=== PATIENT | male | born 1955 | race Caucasian/White ===

== ENCOUNTER 2019-02-15 06:08 | Day surgery (SDC) | payer BC, SELFPAY ==
[2019-02-15 06:38] VITALS: BP 136/80; PULSE 63; RESP 18; TEMP 36.6; O2SAT 97
[2019-02-15] MEDS: Lactated Ringers 1,000 ML 80 ML IV (06:51)
--- NOTE | 2019-02-15 06:53 | W.COLOREPORT ---
Date of service: 02/15/19 Time of Service: 07:25 Colonoscopy Report Date of procedure: 02/15/19 Pre-op diagnosis general: Colon Cancer screening Post-op diagnosis procedure note: other (Colon polyps and right sided diverticulosis) Procedure: Colonoscopy with polypectomy by cold forceps Surgeon: Gayatri Hansen Anesthesia proc note operative: other (General/ ASA 2/Humera Castellanos, JOSE ) Estimated blood loss (mL): 3 Pathology: other (cecal polyp and sigmoid polyp) Complications: None Disposition: same day Indications: Mr. Costa is a pleasant 63 year old male seen in the office for a screening colonoscopy. His last colonoscopy was in 2007 and was normal. Risks, benefits and complications have been reviewed. Complications include but are not limited to bleeding, pain, perforation, missed small lesion/polyp, sore throat, aspiration and adverse reaction to the medications. Questions were entertained and answered to their satisfaction and they wished to proceed. No guarantees were given or implied. Prep: Miralax/Dulcolax Procedure Start Time: :25 Procedure End Time: 07:56 Retraction Time: 19 minutes Findings: small sessile polyp in the cecum Pedunculated polyp in the sigmoid colon Procedure Description: After informed consent was obtained the patient was taken to the procedure room and placed in a left decubitous position. Monitors were applied and a time out was done. The patients name, date of , procedure, allergies to medications and metal in their body was reviewed. The patient was then sedated. Once sedated and comfortable a rectal exam was done. External exam was normal. Internal exam revealed a normal sphincter tone and no palpable masses. The prostate smooth. The scope was then introduced and retro-flexed. No internal hemorrhoids were identified. The scope was then advanced to the cecum with difficulty. The patients position was changed to supine and then the scope was able to get advanced into the cecum. The TI and appendiceal orifice were identified. The prep was adequate. The scope was then slowly retracted over 19 minutes back into the rectum. Polyps were removed in the cecum and in the sigmoid colon with cold forceps. There were a handful of diverticula in the right colon. The scope was removed and the patient was woken up and taken back to Same day surgery in stable condition. The patient tolerated the procedure well and there were no immediate complications. Follow up: The patient should follow up in 3-5 years unless they develop changes in bowel habits or other new gastrointestinal complaints.
--- NOTE | 2019-02-15 06:57 | W.PM.DSUDISC ---
Discharge Plan Disposition Patient Disposition: HOME Condition: Good Discharge Details Reason For Visit: Colon Cancer Screening Attending Provider: Gayatri Hansen Primary Care Provider: Nakul Crooks Home Meds and New Rx's Prescriptions: Continued aspirin 81 MG tablet,chewable 81 mg PO DAILY RF: 0 vitamin B complex [B Complex-Vitamin B12] 1 EACH tablet 1 ea PO DAILY RF: 0 sertraline 50 MG tablet 1 tab PO DAILY Qty: 60 RF: 5 metoprolol succinate 50 mg tablet extended release 24 hr 50 mg PO DAILY Qty: 90 RF: 3 lisinopril 10 mg tablet 10 mg PO DAILY Qty: 90 RF: 3 pravastatin 20 mg tablet 20 mg PO DAILY Qty: 90 RF: 4 multivitamin Capsule 1 cap PO DAILY RF: 0 Discontinued polyethylene glycol 3350 17 gram/dose powder 238 g PO ONCE Qty: 238 RF: 0 bisacodyl [Dulcolax (bisacodyl)] 5 mg tablet,delayed release (DR/EC) 5 mg PO ONCE Qty: 4 RF: 0 Discharge Instructions Instructions: Colonoscopy (DC), Colorectal Polyps (DC), Diverticulosis (DC) Additional Instructions: Findings: 2 polyps mild diverticulosis Follow up: 3-5 years Please call if you develop: fevers >101.5 Nausea or Vomiting Abdominal pain that is not transient DAY SURGERY UNIT POST COLONOSCOPY INSTRUCTIONS 1. Because there will be medication in your system for the next 24 hours, you may feel a little sleepy. Your coordination will be affected. Therefore: a. Do not drive or operate dangerous equipment for 24 hours. b. Do not drink alcohol beverages for 24 hours (not even beer). c. Plan to go home and rest for the day. 2. Generally there are no restrictions on your activity after a day or so has gone by, but you may feel a bit fatigued for a few days. 3 After you arrive home you may have a light meal and return to a normal diet as you can tolerate it without feeling sick to your stomach. 4. After surgery, you may feel pain or discomfort. This should be only transient, but if it persists please contact your doctor. 5. If there are any questions regarding the findings of your procedure, please feel free to contact your doctor. 6. If you are unable to contact your doctor with a problem, contact the hospital at [phone]. 7. Continue all your regular medications unless directed otherwise. I understand the above instructions and have no questions. Signature of Patient or Responsible Adult Escort Date/Time Name of Responsible Adult Escort Signature of Nurse Date/Time Activity:: Activity as Tolerated Diet:: high fiber diet Discharge Orders Discharge Orders: Discharge Order (Routine); Ordered 02/15/19 Ordered By: Gayatri Hansen DS: Diagnosis Discharge Diagnosis (1) S/P colonoscopy: Status: Acute (2) Colorectal polyp detected on colonoscopy: Status: Acute (3) Diverticulosis: Status: Acute
--- NOTE | 2019-02-15 07:40 | BOWEL_PTH ---
PATIENT: Aditya Costa LOC: [facility] U#:[id number] AGE/SX: 63/M ROOM: RE02/15/[address]: Gayatri Hansen MD : [id number] BED: DIS: 02/15/2019 SPEC #: [id number] RECD: 02/15/19 12:44 STATUS: [place]ORE REQ #: [id number] ROB: 02/15/19 07:[address]: Gayatri Hansen DEPT: Surgical Specimen RECD BY: Gricelda Rahman ENTERED: 02/15/19 12:45 SP TYPE: Bowel OTHR DR: Nakul Crooks DO Tissues: 1 - BIOPSY BOWEL 2 - BIOPSY BOWEL Procedures: GROSS AND MICRO LEVEL 4 Comments: [id number]
[2019-02-15 08:35] VITALS: BP 120/84; PULSE 56; RESP 16; TEMP 36.2; O2SAT 99
== END 2019-02-15 09:15 | disposition home or self-care (01) ==
PROVIDERS: PCP Emergency Medicine; Visit Provider Surgery
PROC: 0DJD8ZZ Inspection of Lower Intestinal Tract, Via Natural or Artificial Opening Endoscopic (ICD-10-PCS; CPT 45378; principal; 2019-02-15 07:30)
DX: Z12.11 Encounter for screening for malignant neoplasm of colon (principal); D12.0 Benign neoplasm of cecum; K63.5 Polyp of colon; I10 Essential (primary) hypertension; E78.5 Hyperlipidemia, unspecified
CPT/HCPCS: 45380; 88305

== ENCOUNTER 2019-11-22 07:00 | Outpatient (CLI) | payer BC, SELFPAY ==
[2019-11-22 11:05] LABS: Anion Gap 9.2 mmol/L (3-11); BUN 18 mg/dL (7-18); CO2 30.8 mmol/L (21.0-32.0); CREATININE 0.97 mg/dL (0.70-1.30); Calcium 9.3 mg/dL (8.5-10.1); Chloride 102 mmol/L (98-107); Glucose 113 mg/dL (74-106); Potassium 4.4 mmol/L (3.5-5.1); Sodium 142 mmol/L (136-145)
== END 2019-11-22 07:20 ==
PROVIDERS: PCP Emergency Medicine; Visit Provider Emergency Medicine
DX: I10 Essential (primary) hypertension (principal)
CPT/HCPCS: 36415; 80048

== ENCOUNTER 2021-01-23 12:10 | Outpatient (REF) | payer BC, SELFPAY ==
[2021-01-23 22:39] LABS: BUN 28 mg/dL (7-18); Calcium 9.6 mg/dL (8.5-10.1); Chloride 103 mmol/L (98-107); Cholesterol 197 mg/dL (<200); Glucose 108 mg/dL (74-106); HDL Cholesterol 46 mg/dL (40-60); Potassium 4.4 mmol/L (3.5-5.1); Sodium 141 mmol/L (136-145); Triglyceride 403 mg/dL (<150)
[2021-01-23 22:59] LABS: LDL CHOLESTEROL 103 mg/dL (<100)
== END 2021-01-23 12:11 | disposition home or self-care (01) ==
LOC: LBN 12:10
PROVIDERS: PCP Emergency Medicine; Visit Provider Emergency Medicine
DX: E11.9 Type 2 diabetes mellitus without complications (principal); E78.5 Hyperlipidemia, unspecified; I10 Essential (primary) hypertension
CPT/HCPCS: 80048; 80061; 83721; 83036

== ENCOUNTER 2021-01-23 17:54 | Outpatient (CLI) | payer BC, SELFPAY ==
--- NOTE | 2021-01-23 12:30 | DI.RAD_ITS ---
EXAM: XR SHOULDER RT COMPLETE 2+V CLINICAL HISTORY: Rt shoulder pain, injury, M25.511. TECHNIQUE: 2D digital imaging was performed. COMPARISON: No exams were available for comparison FINDINGS: BONES: No acute fracture is present. No bony destructive lesion is seen. Prior distal clavicular res ection. Subchondral cysts near the greater tuberosity. JOINTS: No dislocation present. Glenohumeral joint space well maintained. Mild spurring at the gleno id. SOFT TISSUE: Normal. IMPRESSION: Distal clavicular resection. Mild glenohumeral joint degenerative changes. DATA REPOSITORY: RADIATION DOSE DELIVERED:
== END 2021-01-23 18:14 ==
PROVIDERS: PCP Emergency Medicine; Visit Provider Emergency Medicine
DX: M25.511 Pain in right shoulder (principal); M25.811 Other specified joint disorders, right shoulder
CPT/HCPCS: 73030

== ENCOUNTER 2021-04-08 09:16 | Outpatient (CLI) | payer BC, SELFPAY ==
--- NOTE | 2021-04-08 08:30 | DI.RAD_ITS ---
Exam(s) XR SHOULDER LT COMPLETE 2+V EXAM: XR SHOULDER LT COMPLETE 2+V CLINICAL HISTORY: L shoulder pain. TECHNIQUE: 2D digital imaging was performed. COMPARISON: CR XR SHOULDER RT COMPLETE 2+V from 01/23/2021 FINDINGS: No evidence of acute fracture or dislocation. However, there is a 7 x 3 millimeter calcification the soft tissues adjacent to the greater tuberosity consistent with calcific tendinitis. Subacromial sp ulises is not diminished. AC joint appears unremarkable. IMPRESSION: Calcific rotator cuff tendinitis. DATA REPOSITORY: RADIATION DOSE DELIVERED:
== END 2021-04-08 09:17 | disposition home or self-care (01) ==
LOC: DIORS 09:16
PROVIDERS: PCP Emergency Medicine; Referring Provider Emergency Medicine; Visit Provider Physician Assistant
DX: M25.512 Pain in left shoulder (principal); M75.32 Calcific tendinitis of left shoulder
CPT/HCPCS: 73030

== ENCOUNTER 2021-07-02 01:10 | Outpatient (CLI) | payer BC, SELFPAY | END 2021-07-02 01:11 | disposition home or self-care (01) | LOC: LOS 01:10 | PROVIDERS: PCP Emergency Medicine; Visit Provider Emergency Medicine | DX: E11.9 Type 2 diabetes mellitus without complications (principal) | CPT/HCPCS: 36415; 83036 ==

== ENCOUNTER 2021-08-23 02:27 | Outpatient (CLI) | payer BC, SELFPAY ==
--- NOTE | 2021-08-23 06:30 | DI.MRI_ITS ---
Exam(s) MR UPPER JOINT LT WO EXAM: MR UPPER JOINT LT WO CLINICAL HISTORY: calcific tendinitis of shoulder, shoulder pain. TECHNIQUE: Multiplanar multisequence MRI was performed. COMPARISON: plain films 08 April 2021 FINDINGS: Bones: There is no fracture or contusion pattern. The AC joint shows mild spurring. Rotator Cuff: There is a full-thickness tear of the supraspinatus tendon with retraction of nearly 1 cm. There is mild muscle atrophy, Goutallier grade 2. The infraspinatus tendon shows calcifications distally but no evidence of tear or surrounding thickening. There is some high signal within the distal subscapul nola tendon a question of a partial tear. The teres minor is normal. Labrum and biceps anchor: The biceps tendon is located. The anchor is well maintained. There is fluid in the biceps tendon she ath. The labrum is within normal limits. There is a small joint effusion as well as fluid in the fajardo bcoracoid region. There is extension of fluid around the subscapularis muscle . there is a small am ount of fluid in the subacromial sub deltoid bursa. Fluid extends anterior to the teres minor muscle . IMPRESSION: Full-thickness tear of the supraspinatus tendon. Question partial tear of the subscapularis tendon. JOint effusion with extension around the subscapularis and teres minor muscles.. DATA REPOSITORY:
== END 2021-08-23 02:47 ==
PROVIDERS: PCP Emergency Medicine; Visit Provider Student in an Organized Health Care Education/Training Program
DX: M25.512 Pain in left shoulder (principal); M25.412 Effusion, left shoulder; M75.102 Unspecified rotator cuff tear or rupture of left shoulder, not specified as traumatic; M75.32 Calcific tendinitis of left shoulder
CPT/HCPCS: 73221

== ENCOUNTER 2021-12-09 02:12 | Outpatient (CLI) | payer BC, SELFPAY ==
[2021-12-09 11:02] LABS: Source Nasal/Nares
[2021-12-09 15:09] LABS: COVID-19 PCR Negative (Negative)
== END 2021-12-09 02:13 | disposition home or self-care (01) ==
LOC: LBO 02:12
PROVIDERS: PCP Nurse Practitioner Family; Visit Provider Student in an Organized Health Care Education/Training Program
DX: Z20.822 Contact with and (suspected) exposure to COVID-19 (principal); Z01.818 Encounter for other preprocedural examination
CPT/HCPCS: 87635

== ENCOUNTER 2021-12-11 07:56 | Day surgery (SDC) | payer BC, SELFPAY ==
[2021-12-11] VITALS (9 sets, daily range): BP systolic 106–138; BP diastolic 54–84; PULSE 54–72; RESP 11–16; TEMP 36.1–37.1; O2SAT 96–99; BMI 35.2
[2021-12-11] MEDS: Lactated Ringers 1,000 ML 80 ML IV (08:35)
--- NOTE | 2021-12-11 08:52 | W.ANESPRE ---
General Info Date of Service Date Performed: 12/11/21 Height: 5 ft 8 in Weight: 105 kg Body Mass Index (BMI): 35.2 Surgical Procedure: Operation Date: 12/11/21 11:10 Proposed Procedure Side Surgeon p Shoulder Rotator Cuff Arthroscopic Left Antwan Valdes MD Meds Allergies and Home Medications Allergies Allergy/AdvReac Type Severity Reaction Status Date / Time atorvastatin calcium AdvReac Mild MYALGIAS Verified 12/11/21 08:15 [From Lipitor] Home Medication Medication Instructions Recorded aspirin 81 mg chewable tablet 81 mg PO DAILY tab-cap 04/30/17 vitamin B complex (B 1 ea PO DAILY 05/05/18 Complex-Vitamin B12) multivitamin 1 cap PO DAILY 02/11/19 metoprolol succinate 50 mg 50 mg PO DAILY #90 tab 10/31/20 tablet,extended release 24 hr lisinopril 10 mg tablet 10 mg PO DAILY #90 tab-cap 11/07/20 sertraline 50 mg tablet 50 mg PO DAILY #90 tab 02/26/21 pravastatin 20 mg tablet 20 mg PO DAILY #90 tab-cap 03/05/21 Current Visit Medications: Current Medications Generic Name Dose Route Start Last Admin Trade Name Freq PRN Reason Stop Dose Admin Ringer's Solution 1,000 mls @ 80 mls/hr 12/11/21 06:00 12/11/21 08:35 IV 01/09/22 23:59 80 mls/hr INFUSION MOHIT Administration Cefazolin Sodium/Dextrose 2 gm in 50 mls @ 100 mls/hr 12/11/21 06:00 Ancef Duplex IVPB 12/11/21 16:00 PREOP MOHIT IV Miscellaneous Supplies 1 each 12/11/21 06:00 Iv Access IV 01/09/22 23:59 DIRECTED MOHIT Sodium Chloride 0 ml 12/11/21 06:00 Normal Saline Flush 10 Ml Syr IV 01/09/22 23:59 PRN PRN Sodium Chloride 0 ml 12/11/21 06:00 Normal Saline 10 Ml Vial IJ 01/09/22 23:59 DIRECTED PRN Sterile Water 0 ml 12/11/21 06:00 Water,Injection,Sterile 10 Ml Vial IJ 01/09/22 23:59 DIRECTED PRN PFSH Active Problems Active Problems: Problem Status Onset Code Left rotator cuff tear M75.102 Calcific tendonitis of left shoulder M75.32 Right shoulder injury S49.91XA Anal fissure K60.2 Diverticulosis ~02/15/19 K57.90 Colorectal polyp detected on colonoscopy ~02/15/19 K63.5 Encounter for screening colonoscopy Z12.11 Nonsustained ventricular tachycardia 07/08/16 I47.2 Neuropathy of foot 05/05/18 G57.90 Lipoma D17.9 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 Hyperlipidemia 01/07/13 E78.5 Hemorrhoids K64.9 Essential hypertension 01/05/14 I10 Chest pain 09/17/08 R07.9 Carpal tunnel syndrome G56.00 Benign prostatic hyperplasia with urinary obstruction N40.1, N13.8 Medical History Medical History Depression Hypertension Surgical History Surgical History Colonoscopy - IV Sedation 2007; neg Complete tear of right rotator cuff (02/21/16) surgery Dr Valdes 2016 History of appendectomy S/P colonoscopy (~02/15/19) Status post tonsillectomy and adenoidectomy Tobacco Smoking/Tobacco Use Status: Never Passive smoking exposure: No Second hand exposure: Yes Alcohol Alcohol Intake: current Alcohol intake frequency: a few times a week Alcohol type: beer Substance Use Substance use: Never Substance use type: does not use Details: alcohol last night 5-6pm Vital Signs and Lab Results Vital Signs Most Recent Vital Signs in EMR: Most Recent Vital Signs Temp Pulse Resp BP Pulse Ox 37.1 C 60 16 138/84 97 12/11/21 08:00 12/11/21 08:00 12/11/21 08:00 12/11/21 08:00 12/11/21 08:00 Lab Results Blood Type / Crossmatch: No Data to Display Complete Blood Count: No Data to Display Complete Metabolic Panel: No Data to Display Liver Function Panel: No Data to Display Coagulation Panel: No Data to Display Cardiac Panel: No Data to Display Arterial Blood Gas: No Data to Display Venous Blood Gas: No Data to Display Pancreas Panel: No Data to Display Thyroid Panel: No Data to Display Infectious Disease: Coronavirus (COVID-19)(PCR) Negative (Negative) 12/09/21 08:44 12/09/21 Coronavirus 2019 Source Nasal/Nares 12/09/21 08:44 12/09/21 Blood Cultures: No Data to Display Toxicology Panel: No Data to Display Anesthesia Assessment and Plan Anesthesia History Personal History: No History of Anesthesia Complications Family History: No Family History of Anesthesia Complications Exercise Tolerance Exercise Tolerance: Metabolic Equivalents>4 Pertinent Negatives Pertinent Negatives: No Symptoms of GERD, No Major Cardiovascular Symptoms or Complaints, No Major Pulmonary Symptoms or Complaints and No History of CVA/TIA Cardiac & Pulmonary Exam Cardiac Exam: Normal S1/S2 Heart Sounds Pulmonary Exam: Clear Bilateral Breath Sounds Implantable Cardiac Device Does patient have a Pacemaker or an ICD?: No Airway Exam Known Difficult Airway: No Mallampati Class: 2 Mouth Opening: Normal (> 3cm) Thyromental Distance: Greater than 3 cm Neck Range of Motion: Full ROM Neck Circumference: Normal Teeth Condition: Normal Dentition ASA Classification ASA Score: ASA 2 Emergency Case?: No NPO Status NPO Status: NPO Clears >2 hours, Solids >8 hours Anesthesia Plan Resuscitation Status: Full Code Anesthesia Technique: General Anesthesia Airway Planned: Endotracheal Tube Pain Management: Surgeon and patient request nerve block Monitors Used: Standard Monitors
[2021-12-11] MEDS: ceFAZolin 2 GM/50 ML BAG IVPB (10:26)
--- NOTE | 2021-12-11 10:49 | W.PM.DSUDISC ---
Discharge Plan Disposition Patient Disposition: HOME Condition: Good Discharge Details Reason For Visit: L RTC repair Attending Provider: Antwan Valdes Primary Care Provider: Taqueria Piña Home Meds and New Rx's Prescriptions: New acetaminophen 500 mg tablet 1,000 mg PO TID Qty: 90 3RF ibuprofen 600 mg tablet 600 mg PO TID PRNQty: 90 3RF oxycodone 5 mg tablet 5 mg PO Q4H MDD 6 tabs PRN (Reason: pain) Qty: 20 0RF Continued aspirin 81 MG tablet,chewable 81 mg PO DAILY 0RF vitamin B complex [B Complex-Vitamin B12] 1 EACH tablet 1 ea PO DAILY 0RF metoprolol succinate 50 mg tablet extended release 24 hr 50 mg PO DAILY Qty: 90 3RF lisinopril 10 mg tablet 10 mg PO DAILY Qty: 90 3RF sertraline 50 mg tablet 50 mg PO DAILY Qty: 90 5RF pravastatin 20 mg tablet 20 mg PO DAILY Qty: 90 4RF multivitamin Capsule 1 cap PO DAILY 0RF Discharge Instructions Stand Alone Forms: Keisha degroot/KATTY Equipment/Supplies: Sling Activity:: Elevate Remove Dressings/Wound Care:: 72 hours Shower/Bathe:: 72 hours Diet:: As Tolerated Discharge Orders Discharge Orders: Discharge Order (Routine); Ordered 12/11/21 Ordered By: Hoang Becerril
[2021-12-11] MEDS: EPINEPHrine 30 MG/30 ML VIAL (10:58)
--- NOTE | 2021-12-11 11:06 | W.ANESNERVE ---
Nerve Block Single Injection Procedure Date and Time Date Performed: 12/11/21 Procedure Start: 09:28 Location Where Procedure Performed Procedure Location: Day Surgery Unit Reason Performed: Postoperative Analgesia Requesting Provider: Antwan Valdes Timeout Performed Timeout Performed: Yes Monitoring Used ECG, Blood Pressure and SpO2 Sterility Sterility: Hand Hygiene, Surgical Cap, Surgical Mask, Sterile Gloves, Eye Protection and Chlorhexidine Sedation Given During Procedure Sedation Given (Indicate Dose Given): Versed IV Dose:: 2 mg Patient Mental Status Patient Mental Status: Sedate with meaningful communication Nerve Block 1st Nerve Block: Laterality: Left Block Type: Supraclavicular Needle / Catheter Used: 100mm SonoPlex II Local Anesthetic Bolus (Indicate Dose Given): Lidocaine used for local infiltration of skin, Injected in 3-5ml increments after negative blood aspiration, Bupivacaine 0.5% Dose:: 10 ml and Exparel Dose:: 10 ml Additives (Indicate Dose Given): Normal Saline Ultrasound: Sterile probe cover and gel used Ultrasound Image Saved?: Yes Nerve Stimulator: Not Used Paresthesia: None Procedure Tolerated: No Complications and Patient tolerated well Procedure Outcome: Successful Performed By: Loy Edmond
--- NOTE | 2021-12-11 12:22 | ROE_ITS ---
Date of service: 12/11/21 Time of Service: 12:22 Operative Note Operative Note DATE OF PROCEDURE: 12/11/21 PRE-OP DIAGNOSIS: Left Rotator Cuff Tear POST-OP DIAGNOSIS: same Left Biceps Tendon Tear PROCEDURE: - Arthroscopic Rotator Cuff Repair - Biceps Tenotomy - Extensive debridement of anterior and posterior glenohumeral joint and rotator cuff SURGEON: Antwan Valdes DATA CONVERSION OPERATOR: Hoang Becerril Refer to Anesthesia Record ESTIMATED BLOOD LOSS: 0 PATHOLOGY: none sent COMPLICATIONS: None Patient was transported to: PACU Patient's condition: stable Indications: I have seen Aditya in clinic for a painful shoulder from rotator cuff tear. Pathology was confirmed based on MRI and exam findings. Nonoperative measures were exhausted but disability and pain persisted. I discussed shoulder arthroscopy and procedures. I reviewed the risks of the procedures to include, but not limited to, bleeding, infection, pain, stiffness, damage to nerves or vessels, recurrence, hardware failure, blood clot. Despite these risks, the patient elected to proceed. Findings: A diagnostic arthroscopy was performed with the following findings: Articular Side - Glenohumeral Joint: Minimal arthritic changes centrally within the glenoid - Labrum: Diffuse fraying throughout the labrum from 9 o'clock to 2 o'clock - Cuff: Upper subscapularis tear with few anterior fibers left attached. Obvious tear of the supraspinatus tendon - Biceps: Diffuse tearing of the biceps tendon throughout the intra-articular portion Subacromial Side - Bursal: Dense inflammatory change - Rotator Cuff: L shaped tear of the supraspinatus with thickened anterior CHL - No significant spurring Procedure Description: Aditya was greeted in the preoperative holding area where the correct side was identified and marked. The consent was reviewed with the patient and signed. The history and physical was updated. All questions were answered. Aditya was taken back to the PACU for administration of an intrascalene nerve block. He was then taken to the operating room. The patient was placed into the supine position on the operating room table. A general anesthetic was administered. Aditya was then positioned in the beach chair position. All bony prominences were well padded. The head was placed in a foam head refrigerating engineer in a neutral position. Prophylactic antibiotics in the form of Cefazolin were administered. The left arm/shoulder was then prepped with Chloraprep and draped in a standard fashion with stockinette and shoulder drape. A timeout to confirm correct identity, side and site, procedure, allergies, anesthesia, and medical concerns was performed. The arm was placed into a pneumatic frausto, [id number]. The shoulder arthroscopy was then performed. The glenohumeral joint was injected with 20 cc of normal saline with good flow back. A standard posterior portal was made and the joint was entered atraumatically with a blunt arthroscope. Once inside we had good visualization of the structures of the glenohumeral joint. An anterior portal was established with spinal needle localization. A 6.5 mm cannula was inserted. A probe was then used to perform a diagnostic arthroscopy. There is noted to be mild chondromalacia of the central glenoid and possibly some thinning over the superior humeral head but no significant defects. The labrum was frayed anteriorly and posteriorly, from 9:00 to 2:00. There were no loose bodies in the inferior pouch. The superior rotator cuff was completely torn with signficant fraying at the tear edge. The biceps tendon was torn throughout its intra-articular portion. The subscapularis elevated off the tuberosity with only some anterior fibers remaining, yet the distal inferior fibers were intact. Is a shaver to debride some of the tearing of the rotator cuff for better visualization. An electrocautery device was then used to perform a biceps tenotomy. I used the electrocautery to help shape and contour the labrum removing its frayed tissue. I then used electrocautery as well to open of the rotator interval which was thickened for better visualization of the subscapularis. Debridement was performed of the edge of the supraspinatus there seem to be a very large component of the coracohumeral ligament which was free- floating anteriorly. This was left in place. I then placed a anterolateral portal using a spinal needle for localization. A 7.5 mm cannula was placed and this became a working portal for the subscapularis repair. Traction was placed on the subscapularis tendon and it was easy identifiable that there was high- grade partial tearing involving upper portion subscapularis with only anterior fibers remaining. Gentle retraction of the subscapularis brought healthy tissue fibers onto the lesser tuberosity. From the anterior portal I then debrided the lesser tuberosity of any remaining fibers and to scuff the bone for healing. A single Mitek Healix 4.5 mm anchor was placed. Two horizontal anchors were placed into the subscapularis which nicely reapproximated the tendon back down to bone. These were tied from the anterior portal using standard knot-tying techniques. Sutures were cut and the tear was inspected which showed excellent reapproximation of the subscapularis back down onto the lesser tuberosity. The arthroscope was then inserted into the subacromial space. The 6.5 mm cannula was placed lateral to the CA ligament. A complete bursectomy is performed anteriorly, posteriorly, and laterally with electrocautery and shaver. A second posterior lateral portal was established with spinal needle localization which became the new viewing portal; anterolateral portal began the working portal. This had excellent exposure of the rotator cuff. The tear of the rotator cuff is these identifiable. It seem to be more of a crescent type tear however there is a large anterior component which seem to be a large component from the coracohumeral ligament which may represent more of a L-type tear. Traction was placed onto this tissue was easily reapproximated on top of the the tuberosity. Bony surface of the greater tuberosity was removed of any excess tissue and a shaver was used to scuff the bone until there is bleeding seen. Using a spinal needle, placed 2 Medial Row anchors. These were 4.5 mm Roxanne tape anchors by Mitek. There was excellent purchase into the bone. I used the two anchors to perform a DynaSeal technique. The sutures from each anchor were passed through the anterior and posterior aspects of the tear respectively. Asingle limb from each anchor was pulled outside the lateral portal and then tied. The free limb from each anchor is in use the shuttle is back down this created a medial row suture bridge which completely approximated the tendon back down to the medial, articular margin, aspect of the tuberosity. I then placed 2 Lateral Row anchors. The first was placed posteriorly incorporating one tape suture from each anchor and the free suture limb from the posterior anchor. This was a 4.75 mm Mitek Healix knotless anchor which was placed without difficulty incorporating those suture limbs and tightened. The same was done for the anterior. This compressed the rotator cuff against the tuberosity. The anterior tissue seen to be more prominent at this point was concerned there may have been some component supraspinatus involved instead just being coracohumeral ligament. It was obviously not the bulk of the tendon. Using the free suture limb from the anterior lateral anchor and then placed a horizontal mattress suture was brought down this anterior soft tissue on top of the anterior lateral aspect of the tuberosity. This was tied down completely. All sutures were cut. Rotator cuff was inspected and looked to be stable in all positions. The scope equipment was removed from the shoulder. Excess fluid was evacuated. The portal sites were closed with 3-0 Monocryl. The wounds were dressed with Steri-Strips, 4 x 4's, ABDs, Medipore tape. A sling was applied. The patient tolerated the procedure well and was returned to the PACU in a stable condition suffering no known complication.
--- NOTE | 2021-12-11 13:56 | W.ANESPOSTOP ---
Postoperative Evaluation Date, Time and Location Date Performed: 12/11/21 Time Performed: 13:36 Patient Location: PACU Vital Signs Most Recent Imported Vital Signs: Most Recent Vital Signs Temp Pulse Resp BP Pulse Ox 36.1 C L 56 L 16 126/79 97 12/11/21 13:36 12/11/21 13:36 12/11/21 13:36 12/11/21 13:36 12/11/21 13:36 Pain Score Most Recent Pain Score: Most Recent Pain Score Pain Level 3 12/11/21 13:36 Assessment Mental Status: Awake (Alert & Oriented to Patient Baseline) Airway and Respiratory Function: Patent airway with normal (patient baseline) respiratory exam Cardiovascular Function: Hemodynamically Stable Hydration Status: Adequately Hydrated Nausea & Vomiting: No Nausea or Vomiting Pain: Pt. Denies Any Pain Peripheral Nerve Block: Regional nerve block not resolved at time of post operative discharge
[2021-12-11] MEDS: oxyCODONE 5 MG TAB PO (14:22)
== END 2021-12-11 15:15 | disposition home or self-care (01) ==
PROVIDERS: PCP Nurse Practitioner Family; Visit Provider Student in an Organized Health Care Education/Training Program
PROC: (CPT 29827; principal; 2021-12-11 11:00)
DX: M75.102 Unspecified rotator cuff tear or rupture of left shoulder, not specified as traumatic (principal); M75.32 Calcific tendinitis of left shoulder; I10 Essential (primary) hypertension; E78.5 Hyperlipidemia, unspecified
CPT/HCPCS: 29827; 23430; 29823; 76942; J0690; J1100; J2001; J2250; J2405; J2704

== ENCOUNTER 2022-02-05 03:01 | Outpatient (CLI) | payer BC, SELFPAY ==
[2022-02-05 22:47] LABS: PSA, Screening 1.7 ng/mL (<=4.5)
== END 2022-02-05 03:02 | disposition home or self-care (01) ==
LOC: LBO 03:01
PROVIDERS: PCP Nurse Practitioner Family; Visit Provider Emergency Medicine
DX: Z12.5 Encounter for screening for malignant neoplasm of prostate (principal)
CPT/HCPCS: 36415; 84153

== ENCOUNTER 2022-07-07 03:33 | Outpatient (CLI) | payer BC, SELFPAY ==
[2022-07-07 12:14] LABS: Estimated GFR 84.05 (mL/min/1.73m2)
[2022-07-07 22:44] LABS: PSA, Screening 1.3 ng/mL (<=4.5)
== END 2022-07-07 03:34 | disposition home or self-care (01) ==
LOC: LOS 03:33
PROVIDERS: PCP Nurse Practitioner Family; Visit Provider Nurse Practitioner Family
DX: I10 Essential (primary) hypertension (principal); N13.8 Other obstructive and reflux uropathy; N40.1 Benign prostatic hyperplasia with lower urinary tract symptoms; Z12.5 Encounter for screening for malignant neoplasm of prostate
CPT/HCPCS: 36415; 84153; 82565; 84132

== ENCOUNTER → 2022-08-26 02:32 | Outpatient (CLI) | payer BC, SELFPAY ==
--- NOTE | 2022-08-26 07:29 | DI.US_ITS ---
APPROVED REPORT EXAM: Comprehensive 2D, Doppler, and color-flow Echocardiogram Patient Location: Out-Patient Vending Machine Mechanic: Ana Parker RDCS ([place]) Indications: New murmur Other Information Study Quality: Adequate. Technically limited study due to body habitus. Conclusion Normal left ventricular wall thickness and chamber size. Estimated ejection fraction is 45 to 50%. There is global hypokinesis. The apex is not well visualized Normal right ventricular size and systolic function Left atrium is mildly dilated. Right atrium is normal Trileaflet aortic valve with trace to mild regurgitation Mitral annular calcification. Moderate eccentric mitral regurgitation Wall motion Left Ventricle The left ventricle is normal size. Left ventricular systolic function is mildly decreased. There is n ormal left ventricular wall thickness. There is no ventricular septal defect visualized. LVEF is 45- 50%. Right Ventricle The right ventricle is normal size. The right ventricular systolic function is normal. Atria Left atrium is mildly dilated. The right atrium size is normal. The interatrial septum is intact with no evidence for an atrial septal defect. Aortic Valve Aortic valve is trileaflet. There is no aortic valvular stenosis. Trace to mild aortic regurgitation. Mitral Valve There is mitral annular calcification. No evidence of mitral valve stenosis. Moderate mitral regurgit ation. Mitral regurgitation jet is eccentrically directed. Tricuspid Valve The tricuspid valve is normal in structure. There is no tricuspid valve stenosis. Trace tricuspid reg urgitation. Unable to assess PA pressure. Pulmonic Valve The pulmonary valve is normal in structure. There is no pulmonic valvular stenosis. Trace pulmonic re gurgitation. Great Vessels The aortic root is normal in size. The ascending aorta is normal in size. 2D Dimensions IVSD d PLAX 1.00 cm M: 0.6-1.2 LV Vol A2C d MOD 163.1 mL LVPW d PLAX 1.03 cm M: 0.6 - 1.2 LV Vol A4C d MOD 191.9 mL LVID d PLAX 5.37 cm M: 4.2 - 5.8 LA vol/ BSA A2C s A-L 26.2 mL/m2 LVDs 4.10 cm M: 2.5 - 4.0 LA vol/ BSA A4C s A-L 42.9 mL/m2 Ao Root d 3.02 cm M: 3.1 - 3.7 LA Vol/ BSA Biplane s A-L 33.6 mL/m2 Ao Asc Diam d 3.23 cm M: 2.6 - 3.4 LA Area A4C s MOD 26.05 cm2 LV EF Teichholz 45.4 % LA Area A2C s MOD 20.41 cm2 LVEF (Carroll's) 47.10 % M: 52 - 72 LV EF A4C MOD 50.1 % LV Volume 129.39 mL M: 62 - 150 LV EF A2C MOD 45.1 % LV Volume Index 59.62 mL/m2 M: 34 - 74 LV EF Biplane MOD 47.1 % LV Vol Biplane MOD 177.1 mL SV 83.43 mL FS 22.75 % SV Index 38.46 mL/m2 M-Mode TAPSE 2.03 cm (M/F) >1.7 LV Diastology MV E' medial 0.054 (>0.07 m/s) E/A Ratio 1.2 LV E/e MED 15.00 (<14) MV E Vmax 0.81 (0.4-1.3 m/s) MV E' lateral 0.077 (>0.1 m/s) MV A Vmax 0.70 (0.4-1.3 m/s) LV E/e LAT 10.55 (<14) MV E/A Ratio 1.09 MV E/E' medial 15.05 MV E/E' lateral 10.56 Aortic Valve LVOT Area 3.45 cm2 AoV Area Vmax 2.56 cm2 LVOT Vmax 0.89 m/s AoV Area/ BSA (Vmax) 1.18 cm2/m2 LVOT Mean Ady. 0.58 m/s YUN Mean Ady. 2.43 cm2 LVOT Peak Grad 3.1 mmHg YUN Mean Ady. Index 1.12 cm2/m2 LVOT Mean Grad 1.6 mmHg AR DT 3057 msec LVOT VTI 0.193 m AR PHT 887 msec LVOT Diam s 2.05 cm AoV Vmax 1.20 m/s Velocity Ratio 0.74 AoV Mean Ady. 0.83 m/s AoV Peak Grad 5.7 mmHg LVOT SV 66.60 mL AoV Mean Grad 3.1 mmHg AoV VTI 0.233 m AoV Area VTI 2.86 cm2 AoV Area/ BSA (VTI) 1.32 cm/m2 Mitral Valve MV DT 160 (160-240 msec) MV PHT 46 msec MV Area PHT 4.76 cm2 MV VTI 0.378 m MV Area VTI 1.76 (4.0-6.0 cm2) Pulmonary Valve PV Vmax 0.80 (0.5-1.5 m/s) RVOT Peak Gr. 1.22 mmHg PV Peak Grad 2.6 mmHg RVOT Mean Gr. 0.60 mmHg PV Mean Grad 1.4 mmHg RVOT VTI 0.125 m PV VTI 0.158 m RVOT Vmax 0.55 m/s
== END ==
PROVIDERS: PCP Nurse Practitioner Family; Visit Provider Nurse Practitioner Family
DX: R01.1 Cardiac murmur, unspecified (principal)
CPT/HCPCS: 93306

== ENCOUNTER 2022-09-02 08:54 | Outpatient (CLI) | payer BC, SELFPAY ==
--- NOTE | 2022-09-02 08:45 | RT.EKG_ITS ---
APPROVED REPORT Exam: Resting ECG Reason for Exam: CP Patient Location: O HR:66 bpm ECG Measurements Heart Rate 66 AXIS UT 155 P 43 QRSd 103 QRS 34 QT 404 T 72 QTc 424 Conclusion Sinus rhythm...normal P axis, V-rate 50- 99 Ventricular premature complex...V complex w/ short R-R interval
== END 2022-09-02 08:55 | disposition home or self-care (01) ==
LOC: DI.CARD 08:55
PROVIDERS: PCP Nurse Practitioner Family; Visit Provider Internal Medicine Cardiovascular Disease
DX: R07.9 Chest pain, unspecified (principal); R94.31 Abnormal electrocardiogram [ECG] [EKG]; I49.3 Ventricular premature depolarization
CPT/HCPCS: 93010

== ENCOUNTER → 2022-09-03 02:12 | Outpatient (CLI) | payer BC, SELFPAY ==
--- NOTE | 2022-09-03 13:00 | DI.US_ITS ---
APPROVED REPORT EXAM: Comprehensive 2D, Doppler, and color-flow Echocardiogram Patient Location: Out-Patient Steel Welder: Ana Parker RDCS (AE) Indications: Murmur, Follow up scan with Definity Echo Enhancing Agent Indication: Endocardial border delineation Agent(s) / Amount(s) Used: Definity 3.0 cc Comments: Contrast study was performed with 1 IV injection of 2cc of diluted definity. Other Information Study Quality: Adequate Conclusion Study was performed to reassess LV function The left ventricle is borderline dilated. Ejection fraction is 55%. Wall motion appears normal Wall motion Left Ventricle Left ventricle is borderline dilated. The left ventricular systolic function is normal. The left vent ricular ejection fraction is within the normal range. Definity microbubble contrast injection was giv en. LVEF is 55%.
[2022-09-03] MEDS: Perflutren Lipid Microspheres 1.5 ML VIAL IVP (15:47)
== END ==
PROVIDERS: PCP Nurse Practitioner Family; Visit Provider Nurse Practitioner Family
DX: R01.1 Cardiac murmur, unspecified (principal)
CPT/HCPCS: C8924

== ENCOUNTER → 2022-09-15 01:31 | Outpatient (CLI) | payer BC, SELFPAY ==
--- NOTE | 2022-09-15 07:17 | DI.NM_ITS ---
APPROVED REPORT Exam: Pharmacologic Patient Location: Out-Patient Room/Bed: Stress Nurse: Martha Chávez RN Ordering Provider:ABIMBOLA DEVINE, Contact Number: [phone] BMI: 35.57 Baseline Rhythm: Sinus Rhythm Comment: PVC's, multifocal, occasional couplet Indications: Evaluate CAD, Cardiomyopathy Medical History Medical History: Cardiomyopathy, MR, heart murmur, NSVT, neuropathy, false positive ETT w/ negative h eart cath, HLD, HTN Obesity Cardiac Medications: Pravastatin, Metoprolol Succinate, Lisinopril, Aspirin Allergies: Atorvastatin calcium Cardiac Risk Factors: +Family history, HTN, HLD, obesity Previous Cardiac Procedures: PCI 2015 Pretest Chest Pain Characteristics: None Exercise History: Indeterminate Physical Disabilities: None Lung Sounds: Clear Heart Sounds: Regular Stress Test Details Test: Pharmacologic stress was paired with low level exercise. Reason for pharmacologic stress test: low heart rate, on beta soheila that could not be held prior to test. Nuclear Acquisition: Rest Tc-99m/Stress Tc-99m 1 day Rest Isotope: Tc-99m Sestamibi. Dose: 9.5 ml Date: 09/15/2022 Injection Time: 08:45 Stress Isotope: Tc-99m Sestamibi. Dose: 32.0 ml Date: 09/15/2022 Injection Time: 10:12 HR Resting HR Supine: 63 bpm Max Heart Rate (APMHR): 156.357755 bpm Resting HR Standin bpm Target HR (85% APMHR): 132.111999 bpm Max HR Achieved: 124 bpm % of APMHR: 79.49 Recovery HR: 75 bpm BP Resting BP Supine: 124/80 mmHg Resting BP Standin/78 mmHg Max BP: 154/78 mmHg Recovery BP: 128/78 mmHg ECG Resting ECG: Sinus Rhythm Ectopy: multifocal pvc's, rare couplet Stress ECG: Sinus Bradycardia, Sinus Tachycardia ST Change: No significant ST segment changes noted Arrhythmia: PVC's, rare couplet, multifocal Recovery ECG: Sinus Rhythm Recovery ST Change: No significant ST segment changes noted Recovery Arrhythmia: multifocal PVC's, rare couplet, PAC Clinical Stress Symptoms: None Rate Pressure Product: [id number] Stress ECG Conclusion 1. Resting electrocardiogram showed poor R wave progression, minor ST abnormalities 2. Patient underwent testing using a combination of low-level exercise and pharmacologic stress with regadenoson 3. Peak heart rate achieved was 79% of predicted for age 4. Electrocardiographic portion of the test was nondiagnostic due to inadequate heart rate 5. See MPI report Stress Test Summary STAGE HR BP SpO2 Symptoms NOTES Supine 63 124/80 96% Standing 78 130/78 1 min post Lexiscan injection 117 132/64 3 min post Lexiscan injection 103 154/78 96% 6 min post Lexiscan injection 86 142/80 97% 9 min post Lexiscan injection 75 128/78 Patient tolerated stress test well. Patient walked on the treadmill at 1.7 mph during Lexiscan inject ion. No side effects from medication administration reported. MPI Conclusion Myocardial perfusion appears within normal limits, no evidence of significant ischemia or prior infar ction EF 43%, wall motion is normal Radiologist Interpretation Radiologist agrees with Last Model Department Supervisor's Interpretation. Radiologist Interpretation by: Yaima Sawyer MD Interpretation Date/Time: 09/15/2022 15:44:56
[2022-09-15] MEDS: Regadenoson 0.4 MG/5 ML SYR IVP (10:41)
== END ==
PROVIDERS: PCP Nurse Practitioner Family; Visit Provider Internal Medicine Cardiovascular Disease
DX: I42.9 Cardiomyopathy, unspecified (principal)
CPT/HCPCS: 78452; 93017; J2785

== ENCOUNTER 2023-07-01 03:34 | Outpatient (CLI) | payer MEDICARE, SELFPAY ==
[2023-07-01 12:56] LABS: CREATININE 1.1 mg/dL (0.70-1.30); Calculated LDL 82 mg/dL (<100); Cholesterol 183 mg/dL (<200); HDL Cholesterol 51 mg/dL (40-60); Potassium 3.9 mmol/L (3.5-5.1); Triglyceride 251 mg/dL (<150)
[2023-07-01 12:57] LABS: Hemoglobin A1C 6.2 % (<5.7)
== END 2023-07-01 03:35 | disposition home or self-care (01) ==
LOC: LOS 03:34
PROVIDERS: PCP Nurse Practitioner Family; Visit Provider Nurse Practitioner Family
DX: I10 Essential (primary) hypertension (principal); E78.5 Hyperlipidemia, unspecified; R73.03 Prediabetes
CPT/HCPCS: 36415; 80061; 82565; 83036; 84132

== ENCOUNTER → 2024-08-12 14:24 | Outpatient (BNVA) | payer MEDICARE, SELFPAY | PROVIDERS: PCP Nurse Practitioner Family; Referring Provider Nurse Practitioner Family; Visit Provider Student in an Organized Health Care Education/Training Program | DX: Z12.11 Encounter for screening for malignant neoplasm of colon (principal); Z86.0100 Personal history of colon polyps, unspecified ==

== ENCOUNTER 2024-09-05 07:44 | Day surgery (SDC) | payer MEDICARE, SELFPAY ==
[2024-09-05 07:55] VITALS: BP 148/88; PULSE 68; RESP 18; TEMP 36.2; O2SAT 98
[2024-09-05] MEDS: Normal Saline Flush 10 ML SYR IV (08:13)
--- NOTE | 2024-09-05 08:35 | W.ANESPRE ---
General Info Date of Service Date Performed: 09/05/24 Height: 5 ft 7 in Weight: 105.233 kg Body Mass Index (BMI): 36.3 Surgical Procedure: Operation Date: 09/05/24 09:05 Proposed Procedure Side Surgeon desiree Ray MD Meds Allergies and Home Medications Allergies Allergy/AdvReac Type Severity Reaction Status Date / Time atorvastatin calcium (From AdvReac Mild MYALGIAS Verified 08/31/24 14:53 Lipitor) Home Medication ?Medication ?Instructions ?Recorded aspirin 81 mg chewable tablet 81 mg PO DAILY 04/30/17 vitamin B complex (B 1 ea PO DAILY 05/05/18 Complex-Vitamin B12 tablet) multivitamin 1 cap PO DAILY 02/11/19 acetaminophen 500 mg tablet 1,000 mg (2 x 500 mg) PO TID #90 12/11/21 tabs cholecalciferol (vitamin D3) 50 50 mcg PO DAILY 06/30/23 mcg (2,000 unit) tablet (Vitamin D3) tamsulosin 0.4 mg capsule 0.4 mg PO DAILY #90 caps 10/14/23 metoprolol succinate 50 mg 50 mg PO DAILY #90 tabs 12/09/23 tablet,extended release 24 hr sertraline 50 mg tablet 50 mg PO DAILY #90 tabs 01/11/24 tetanus-diphtheria toxoids-Td 2 Lf 0.5 ml IM ONCE #0.5 mL 07/07/24 unit-2 Lf unit/0.5 mL IM suspension lisinopril 10 mg tablet See Rx Instructions .Route 07/15/24 .COMPLEX #90 tabs pravastatin 20 mg tablet 20 mg PO DAILY #90 tab-caps 07/15/24 bisacodyl 5 mg tablet,delayed 5 mg PO ONCE #4 tabs 08/12/24 release (Dulcolax (bisacodyl)) polyethylene glycol 3350 17 17 g PO ONCE #238 grams 08/12/24 gram/dose oral powder Current Visit Medications: Current Medications Generic Name Dose Route Start Last Admin Trade Name Freq PRN Reason Stop Dose Admin Ringer's Solution 1,000 mls @ 80 mls/hr 09/05/24 06:00 IV 09/05/24 23:59 INFUSION MOHIT IV Miscellaneous Supplies 1 each 09/05/24 06:00 Iv Access IV 09/05/24 23:59 DIRECTED MOHIT Sodium Chloride 0 ml 09/05/24 06:00 09/05/24 08:13 Normal Saline Flush 10 Ml Syr IV 09/05/24 23:59 10 ml PRN PRN Administration Sodium Chloride 0 ml 09/05/24 06:00 Normal Saline 10 Ml Vial IJ 09/05/24 23:59 DIRECTED PRN Sterile Water 0 ml 09/05/24 06:00 Water,Injection,Sterile 10 Ml Vial IJ 09/05/24 23:59 DIRECTED PRN PFSH Active Problems Active Problems: Problem Status Onset Code Type 2 diabetes mellitus Acute E11.9 Cardiomyopathy Acute I42.9 Mitral regurgitation Chronic I34.0 Murmur Acute R01.1 Status post arthroscopy of left shoulder Acute 12/11/21 Z98.890 Anal fissure Acute K60.2 Diverticulosis Acute ~02/15/19 K57.90 Colorectal polyp detected on colonoscopy Acute ~02/15/19 K63.5 Nonsustained ventricular tachycardia Acute 07/08/16 I47.2 Neuropathy of foot Acute 05/05/18 G57.90 Hyperlipidemia Acute 01/07/13 E78.5 Hemorrhoids Acute K64.9 Essential hypertension Acute 01/05/14 I10 Chest pain Acute 09/17/08 R07.9 Carpal tunnel syndrome Acute G56.00 Benign prostatic hyperplasia with urinary obstruction Acute N40.1, N13.8 Medical History Medical History Left rotator cuff tear Surgically repaired Calcific tendonitis of left shoulder Surgical History Surgical History History of appendectomy Status post tonsillectomy and adenoidectomy S/P colonoscopy (~02/15/19) Complete tear of right rotator cuff (02/21/16) surgery Dr Valdes 2015 Colonoscopy - IV Sedation 2007; neg Tobacco Smoking/Tobacco Use Status: Never Passive smoking exposure: No Second hand exposure: Yes Alcohol Alcohol Intake: current Alcohol intake frequency: a few times a month Alcohol type: beer Substance Use Substance use: Never Substance use type: does not use Vital Signs and Lab Results Vital Signs Most Recent Vital Signs in EMR: Most Recent Vital Signs Temp Pulse Resp BP Pulse Ox 36.2 C L 68 18 148/88 H 98 09/05/24 07:55 09/05/24 07:55 09/05/24 07:55 09/05/24 07:55 09/05/24 07:55 Lab Results Blood Type / Crossmatch: No Data to Display Complete Blood Count: No Data to Display Complete Metabolic Panel: No Data to Display Liver Function Panel: No Data to Display Coagulation Panel: No Data to Display Cardiac Panel: No Data to Display Arterial Blood Gas: No Data to Display Venous Blood Gas: No Data to Display Pancreas Panel: No Data to Display Thyroid Panel: No Data to Display Infectious Disease: No Data to Display Blood Cultures: No Data to Display Toxicology Panel: No Data to Display Imaging and Studies Imaging and Studies Study information below may be from another EMR and interpreted by another provider. Please see original notes in EMR for more complete details. EKG Summary: Exam: Resting ECG Reason for Exam: CP Patient Location: O HR:66 bpm ECG Measurements Heart Rate 66 AXIS OK 155 P 43 QRSd 103 QRS 34 QT 404 T72 QTc 424 Conclusion Sinus rhythm...normal P axis, V-rate 50- 99 Ventricular premature complex...V complex w/ short R-R [id number]/15/22: Stress Test Summary: 09/15/22: Stress ECG Conclusion 1. Resting electrocardiogram showed poor R wave progression, minor ST abnormalities 2. Patient underwent testing using a combination of low-level exercise and pharmacologic stress with regadenoson 3. Peak heart rate achieved was 79% of predicted for age 4. Electrocardiographic portion of the test was nondiagnostic due to inadequate heart rate 5. See MPI report Echocardiogram Summary: 08/26/22: Conclusion Normal left ventricular wall thickness and chamber size. Estimated ejection fraction is 45 to 50%. There is global hypokinesis. The apex is not well visualized Normal right ventricular size and systolic function Left atrium is mildly dilated. Right atrium is normal Trileaflet aortic valve with trace to mild regurgitation Mitral annular calcification. Moderate eccentric mitral regurgitation Repeat echo 09/03/22: EF 55% Anesthesia Assessment and Plan Anesthesia History Personal History: No History of Anesthesia Complications Family History: No Family History of Anesthesia Complications Exercise Tolerance Exercise Tolerance: Metabolic Equivalents>4 Cardiac & Pulmonary Exam Cardiac Exam: Heart Murmur Present Pulmonary Exam: Clear Bilateral Breath Sounds Implantable Cardiac Device Does patient have a Pacemaker or an ICD?: No Airway Exam Known Difficult Airway: No Mallampati Class: 2 Mouth Opening: Normal (> 3cm) Thyromental Distance: Greater than 3 cm Neck Range of Motion: Full ROM Neck Circumference: Normal Teeth Condition: Normal Dentition ASA Classification ASA Score: ASA 3 Emergency Case?: No NPO Status NPO Status: NPO Clears >2 hours, Solids >8 hours Anesthesia Plan Resuscitation Status: Full Code Anesthesia Technique: General Anesthesia Airway Planned: Natural Airway Monitors Used: Standard Monitors
--- NOTE | 2024-09-05 08:43 | W.COLOREPORT ---
Date of service: 09/05/24 Time of Service: 08:43 Colonoscopy Report Procedure Description: PROCEDURES PERFORMED: 1. Colonoscopy with cold forceps polypectomy PREOPERATIVE DIAGNOSIS: Surveillance colonoscopy, colon polyps POSTOPERATIVE DIAGNOSIS: Colon polyps, grade 1 internal hemorrhoids, ascending diverticulosis SURGEON: Barby Ray MD INDICATION for procedure: The patient is a 68-year-old man has a personal history of polyps on previous colonoscopies. No symptoms of concern. This is surveillance. FINDINGS: Normal terminal ileum. In the cecum, just across from the ileocecal valve, a small 2 to 3 mm sessile polyp was removed with cold forceps technique. No other polyps were seen. There is an isolated, single diverticuli present in the ascending colon but none were obvious in the left colon. Mild grade 1 internal hemorrhoid disease was noted on retroflexion. SURVEILLANCE interval/FOLLOW-UP: 3 - 10 years. If sessile serrated or villous histology, then in 3 years. If simple adenomatous polyp, then 5 years because of the history of previous polyps. If hyperplastic, then 10 years should be acceptable. SPECIMENS: yes EBL: Minimal COMPLICATIONS: None QUALITY of prep: Excellent Procedure in detail: The patient gave written consent and was in agreement with the indications, the potential risks as well as the benefits of the procedure. They were taken to the endoscopy suite and laid in the left lateral decubitus position. A timeout was performed and anesthesia was administered which was tolerated well. I started the procedure. Digital rectal and visual examination was performed and grossly within normal limits. A well-lubricated flexible colonoscope was then introduced and passed without any notable difficulty all the way to the cecum identified by the ileocecal valve and the appendiceal orifice. The terminal ileum was briefly intubated and looked normal. The scope was then slowly withdrawn with the above-noted findings. The patient tolerated the procedure well and was taken to the PACU in hemodynamically stable condition.
--- NOTE | 2024-09-05 08:44 | W.PM.DSUDISC ---
Date of service: 09/05/24 Time of Service: 08:45 Discharge Plan Disposition Patient Disposition: Home Condition: Good Discharge Details Attending Provider: Kishan Ray Primary Care Provider: Taqueria Piña Home Meds and New Rx's Prescriptions: No Action cholecalciferol (vitamin D3) [Vitamin D3] 50 mcg (2,000 unit) tablet 50 mcg PO DAILY bisacodyl [Dulcolax (bisacodyl)] 5 mg tablet,delayed release (DR/EC) 5 mg PO ONCE Qty: 4 0RF Rx Instructions: Take per colonoscopy instructions provided by ordering providers office polyethylene glycol 3350 17 gram/dose powder 17 g PO ONCE Qty: 238 0RF Rx Instructions: Take per colonoscopy instructions provided by ordering providers office tetanus-diphtheria toxoids-Td 2-2 Lf unit/0.5 mL suspension 0.5 ml IM ONCE Qty: 0.5 0RF aspirin 81 MG tablet,chewable 81 mg PO DAILY vitamin B complex [B Complex-Vitamin B12] 1 EACH tablet 1 ea PO DAILY tamsulosin 0.4 mg capsule 0.4 mg PO DAILY Qty: 90 3RF metoprolol succinate 50 mg tablet extended release 24 hr 50 mg PO DAILY Qty: 90 3RF sertraline 50 mg tablet 50 mg PO DAILY Qty: 90 3RF lisinopril 10 mg tablet See Rx Instructions .ROUTE .COMPLEX Qty: 90 3RF Dose Instruction: TAKE 1 TABLET BY MOUTH DAILY Rx Instructions: TAKE 1 TABLET BY MOUTH DAILY pravastatin 20 mg tablet 20 mg PO DAILY Qty: 90 4RF multivitamin Capsule 1 cap PO DAILY acetaminophen 500 mg tablet 1,000 mg PO TID Qty: 90 3RF Discharge Instructions Additional Instructions: FINDINGS: A small polyp was found and removed from your colon. It is nothing to worry about. It gets sent for pathology testing. Otherwise, no other inflammatory disease processes of concern were seen. Some very mild internal hemorrhoid disease is present but this is extremely common, benign and nothing needs to be done about it. Your next colonoscopy should probably be in 5 years, but possibly 10 pending the pathology results. We will call you. Activity:: Activity as Tolerated Diet:: As Tolerated
[2024-09-05 08:52] VITALS: BMI 36.3
--- NOTE | 2024-09-05 09:06 | BOWEL_PTH ---
PATIENT: Aditya Costa LOC: [facility] U#:[id number] AGE/SX: 68/M ROOM: RE09/05/[address]: Kishan Ray : 1955 BED: DIS: 09/05/2024 SPEC #: [id number] RECD: 09/05/24 12:47 STATUS: THE[facility]ORE REQ #: [id number] ROB: 09/05/24 09:[address]: Kishan Ray DEPT: Surgical Specimen RECD BY: Gricelda Rahman ENTERED: 09/05/24 12:48 SP TYPE: Bowel OTHR DR: Taqueria Piña, MAYTE Tissues: 1 - BIOPSY BOWEL Procedures: GROSS AND MICRO LEVEL 4 Comments: [id number]
[2024-09-05 09:19] VITALS: BP 97/67; PULSE 65; RESP 18; TEMP 36.6; O2SAT 97
--- NOTE | 2024-09-05 09:27 | W.ANESPOSTOP ---
Postoperative Evaluation Date, Time and Location Date Performed: 09/05/24 Time Performed: 09:26 Patient Location: Day Surgery Unit Vital Signs Most Recent Imported Vital Signs: Most Recent Vital Signs Temp Pulse Resp BP Pulse Ox 36.2 C L 68 18 148/88 H 98 09/05/24 07:55 09/05/24 07:55 09/05/24 07:55 09/05/24 07:55 09/05/24 07:55 Assessment Mental Status: Awake (Alert & Oriented to Patient Baseline) Airway and Respiratory Function: Patent airway with normal (patient baseline) respiratory exam Cardiovascular Function: Hemodynamically Stable Hydration Status: Adequately Hydrated Nausea & Vomiting: No Nausea or Vomiting Pain: Pt. Denies Any Pain Peripheral Nerve Block: Patient did not receive a nerve block
[2024-09-05 09:42] VITALS: BP 95/66; PULSE 63; RESP 18; TEMP 36.6; O2SAT 97
[2024-09-05 09:43] VITALS: BP 104/68; PULSE 63; RESP 18; O2SAT 98
== END 2024-09-05 09:52 | disposition home or self-care (01) ==
PROVIDERS: PCP Nurse Practitioner Family; Visit Provider Student in an Organized Health Care Education/Training Program
PROC: 0DJD8ZZ Inspection of Lower Intestinal Tract, Via Natural or Artificial Opening Endoscopic (ICD-10-PCS; CPT 45378; principal; 2024-09-05 09:00)
DX: Z12.11 Encounter for screening for malignant neoplasm of colon (principal); E11.9 Type 2 diabetes mellitus without complications; I10 Essential (primary) hypertension; D12.0 Benign neoplasm of cecum; K64.0 First degree hemorrhoids; K57.30 Diverticulosis of large intestine without perforation or abscess without bleeding
CPT/HCPCS: 45380; 00123; 88305; J2003; J2704

== ENCOUNTER 2024-10-25 03:34 | Outpatient (CLI) | payer MEDICARE, SELFPAY ==
[2024-10-25 12:59] LABS: Anion Gap 7.7 mmol/L (3-11); BUN 28 mg/dL (7-18); CO2 28.3 mmol/L (21.0-32.0); CREATININE 1.2 mg/dL (0.70-1.30); Calcium 9.9 mg/dL (8.5-10.1); Calculated LDL 89 mg/dL (<100); Chloride 104 mmol/L (98-107); Cholesterol 186 mg/dL (<200); Glucose 128 mg/dL (74-106); HDL Cholesterol 53 mg/dL (40-60); Sodium 140 mmol/L (136-145); Triglyceride 221 mg/dL (<150)
[2024-10-25 23:05] LABS: PSA, Screening 1.7 ng/mL (<=4.5)
== END 2024-10-25 03:35 | disposition home or self-care (01) ==
LOC: LOS 03:34
PROVIDERS: PCP Nurse Practitioner Family; Visit Provider Nurse Practitioner Family
DX: Z12.5 Encounter for screening for malignant neoplasm of prostate (principal); Z13.6 Encounter for screening for cardiovascular disorders; Z13.1 Encounter for screening for diabetes mellitus
CPT/HCPCS: 36415; 80048; 80061; 84153

== ENCOUNTER 2025-01-16 01:07 | Outpatient (CLI) | payer MEDICARE, SELFPAY ==
--- NOTE | 2025-01-16 07:19 | DI.RAD_ITS ---
Exam(s) XR LUMBAR SPINE COMPLETE EXAM: XR LUMBAR SPINE COMPLETE CLINICAL HISTORY: Worsening left leg pain from back,M54.50. TECHNIQUE: 2D digital imaging was performed. COMPARISON: No exams were available for comparison FINDINGS: Five views No evidence of fracture, listhesis, nor pars defects. There is multilevel disc space narrowing, including asymmetric right-sided disc space narrowing in th e lateral right-sided osteophytes at L2-3 level as well as moderate uniform disc space narrowing at L 4-5 and advanced disc space narrowing at L5-S1 level. There is posterior bony ridging at L4-5 level and short AP dimensions of the pedicles. Suspect central spinal canal stenosis. The asymmetric righ t-sided narrowing at L2-3 level most probably implies an element of asymmetric right-sided foraminal stenosis at this level. There is some facet arthropathy at multiple levels also evident. Bone density is normal. No osseous lesions. IMPRESSION: Multilevel degenerative disc space narrowing as described individually above. Suspect spinal canal stenosis. DATA REPOSITORY: RADIATION DOSE DELIVERED:
== END 2025-01-16 01:27 ==
LOC: DI 01:07
PROVIDERS: PCP Nurse Practitioner Family; Visit Provider Nurse Practitioner Family
DX: M51.360 Other intervertebral disc degeneration, lumbar region with discogenic back pain only (principal)
CPT/HCPCS: 72110

== ENCOUNTER 2025-07-31 09:14 | Outpatient (CLI) | payer MEDICARE, SELFPAY ==
--- NOTE | 2025-07-31 06:00 | DI.RAD_ITS ---
Exam(s) XR PAIN CLINIC LUMBAR SP 2V EXAM: XR PAIN CLINIC LUMBAR SP 2V CLINICAL HISTORY: Dx: Lumbar Radiculopathy. TECHNIQUE: Fluoroscopy was provided for the referring physician for guidance with performing pain clinic injection procedure. COMPARISON: No exams were available for comparison FINDINGS: Please see procedure note for details. Fluoro time: 15.6 seconds RADIATION DOSE DELIVERED: Ka,r=7.8 mGy
[2025-07-31 09:12] VITALS: BP 123/70; PULSE 62; RESP 18; TEMP 36.3; O2SAT 98
--- NOTE | 2025-07-31 09:45 | PDOC.PAIN_ITS ---
Date of service: 07/31/25 Time of Service: 10:04 Pain Managment Procedure Note Procedure Note Procedure Note: Lumbar Interlaminar Epidural Steroid Injection ? Location: L5-S1 ? Pre-procedure Diagnosis: M54.16- Radiculopathy, LUMBAR region ? Post-procedure Diagnosis:? The same as above ? Sedation:? ? None ? Medication: Depo-Medrol 80 mg, Omnipaque 1 mL ? Estimated blood loss:? less than 2 cc ? Surgeon:? John Contreras MD COMMENT: Patient has multiple levels of spinal stenosis with lateral recess stenosis and foraminal narrowing more on the left side at L4-5 and L5-S1 ? Procedure Detail:? The procedure and potential risks were explained to the patient and informed written consent was obtained. The patient was escorted to the procedure room and placed in the prone position. Pillows were utilized for proper positioning and comfort. Time out was performed in the procedure room with nursing staff confirming the patient's identity, procedure to be performed, allergies, and any blood thinning or anti-platelet medications.? The patient's neck and upper back was prepped with ChloraPrep and draped in a sterile fashion. Sterile technique was maintained throughout the procedure.? Sterile gloves were used, a face mask was worn, and new single dose vials of all medications were used with the top being swabbed with alcohol and given time to dry prior to withdrawal of medication. Lidocane 1% was used to anesthetize the skin.Using a 25-gauge 1.5 inch needle, 1% lidocaine was instilled into the superficial soft tissue overlying the targeted area to provide local anesthesia. With fluoroscopi c guidance, a 17 -gauge Tuohy needle was advanced toward the interlaminar space of L5-S1. The needle was then advance through the ligamentum flavum and into the posterior epidural space using the loss of resistance technique. Correct needle placement was confirmed through review of the AP and contralateral oblique fluoroscopic views. A 19-gauge arrow catheter was threaded cephalad and to the Left Following negative aspiration, one cc of Omnipaque 240 contrast was injected which confirmed good flow throughout the epidural space and no evidence of vascular flow or flow into adjacent compartments. Next, following negative aspiration, 1 cc's of normal saline and 80mg of Depo-Medrol was injected. The needle was gently removed. The patient tolerated the procedure well and was transported to the recovery area for observation and discharge instructions. Permanent images saved and recorded. PAIN PRE-PROCEDURE 04/27 POST-PROCEDURE Plan:? Follow up prn. COMMENT: Could repeat or consider transforaminal steroid injections at L4 and L5 Coding Conscious Sedation used for procedure: No CPT Codes: Inj Spine L/S w/Imaging - 00739 ([id number] ~G) Additional Codes: Date of Service (12224) Date of service: 07/31/25 Diagnoses: M54.16- Radiculopathy, LUMBAR region
[2025-07-31 09:51] VITALS: PULSE 68; O2SAT 95
[2025-07-31 10:00] VITALS: PULSE 63; O2SAT 97
[2025-07-31] MEDS: Epidural Tray 1 EACH MC (10:08)
[2025-07-31] MEDS: Omnipaque 240 MG/ML 50 ML BTL IJ (10:08)
[2025-07-31] MEDS: methylPREDNISolone ACETATE 40 MG/ML VIAL IJ (10:12)
== END 2025-07-31 09:15 | disposition home or self-care (01) ==
LOC: PC 09:15
PROVIDERS: PCP Nurse Practitioner Family; Visit Provider Anesthesiology Pain Medicine
DX: M54.50 Low back pain, unspecified (principal); M54.16 Radiculopathy, lumbar region
CPT/HCPCS: 62323; 72100; J1010; Q9967